=== PATIENT | female | born 1980 | race African-American/Black ===

== ENCOUNTER 2018-08-06 15:25 | Outpatient (CLI) | payer OTHER ==
--- NOTE | 2018-08-07 08:59 | MMO ---
MAMMOGRAM FINDINGS: There are scattered fibroglandular densities. There are no suspicious masses, calcifications or areas of architectural distortion. IMPRESSION: THERE IS NO MAMMOGRAPHIC EVIDENCE OF MALIGNANCY. A ROUTINE FOLLOW-UP MAMMOGRAM IN 1 YEAR IS RECOMMENDED. ACR BI-RADS Category 1 - Negative
== END 2018-08-06 15:26 | disposition home or self-care (01) ==
LOC: BICMAMMO 15:25
PROVIDERS: ATTEND Family Medicine
DX: Z12.31 Encounter for screening mammogram for malignant neoplasm of breast (principal)
CPT/HCPCS: 77063; 77067

== ENCOUNTER 2019-04-11 13:58 | Emergency (ER) | payer OTHER ==
[2019-04-11 15:22] LABS: #Eosinphils 0.1 thou/uL (0.0-0.7); #Lymphocytes 1.1 thou/uL (1.20-3.40); #Monocytes 0.4 thou/uL (0.11-0.59); #Neutrophils 2.5 thou/uL (1.40-6.50); %Basophils 0.5 % (0.0-1.0); %Eosinophils 1.5 % (0.0-10.0); %Lymphocytes 27.8 % (21.0-51.0); %Monocytes 9.3 % (0.0-10.0); %Neutrophils 60.9 % (42.0-75.0); Hemoglobin 8.8 g/dL (12.0-16.0); Mean Corpuscular HGB CONC 32.9 g/dL (32.0-36.0); Mean Corpuscular Hemoglobin 27.3 pg (27.0-31.0); Mean Corpuscular Volume 82.8 fL (78.0-98.0); Mean Platelet Volume 8.2 fL (7.4-10.4); Platelet Count 354 thou/uL (130-400); RBC Distribution Width 14.7 % (11.5-14.5); Red Blood Cell (RBC) Count 3.23 mill/uL (4.20-5.40)
[2019-04-11 15:24] LABS: BHCG - Serum Negative (NEGATIVE); Pregs Control Background? CLEAR/WHITE (CLR/WHITE); Pregs Control Bar Appear? YES (CONTROL BAR)
[2019-04-11] MEDS ORDERED: Ketorolac Tromethamine 30 MG/ML VIAL ONE (15:53)
[2019-04-13 14:37] LABS: Chlamydia by PCR Not Detected (NotDetected); GC by PCR Not Detected (NotDetected)
== END 2019-04-11 17:32 | disposition home or self-care (01) ==
LOC: ERS 13:58
DX: N93.8 Other specified abnormal uterine and vaginal bleeding (principal); D64.9 Anemia, unspecified
CPT/HCPCS: 36415; 84703; 85025; 87480; 87491; 87510; 87591; 87660; 99284; J1885

== ENCOUNTER 2019-08-12 15:02 | Outpatient (CLI) | payer OTHER ==
--- NOTE | 2019-08-12 15:57 | MMO ---
Bilateral MAMMO Bilat Screen [facility]. CLINICAL HISTORY: Patient is 39 years old and is seen for screening. The patient has no family history of breast cancer. The patient has no personal history of cancer. VIEWS: The views performed were: bilateral craniocaudal with tomosynthesis and bilateral mediolateral oblique with tomosynthesis. FILMS COMPARED: The present examination has been compared to a prior imaging study performed at [facility] on 08/06/2018. This study has been interpreted with the assistance of computer-aided detection. MAMMOGRAM FINDINGS: There are scattered fibroglandular densities. There are no suspicious masses, suspicious calcifications, or new areas of architectural distortion. IMPRESSION: THERE IS NO MAMMOGRAPHIC EVIDENCE OF MALIGNANCY. A ROUTINE FOLLOW-UP MAMMOGRAM IN 1 YEAR IS RECOMMENDED. THE RESULTS OF THIS EXAM WERE SENT TO THE PATIENT. ACR BI-RADS Category 1 - Negative MAMMOGRAPHY NOTE: 1. A negative mammogram report should not delay a biopsy if a dominant of clinically suspicious mass is present. 2. Approximately 10% to 15% of breast cancers are not detected by mammography. 3. Adenosis and dense breasts may obscure an underlying neoplasm. Reported by: OMA KLEIN MD Electonically Signed: [id number]
== END 2019-08-12 15:03 | disposition home or self-care (01) ==
LOC: BICMAMMO 15:02
PROVIDERS: ATTEND Specialist
DX: Z12.31 Encounter for screening mammogram for malignant neoplasm of breast (principal)
CPT/HCPCS: 77063; 77067

== ENCOUNTER 2020-02-19 06:03 | Outpatient (CLI) | payer OTHER ==
[2020-02-19 18:03] LABS: Hemoglobin 9.4 g/dL (12.0-16.0); Mean Corpuscular HGB CONC 30.6 g/dL (32.0-36.0); Mean Corpuscular Hemoglobin 23.8 pg (27.0-31.0); Mean Corpuscular Volume 77.8 fL (78.0-98.0); Mean Platelet Volume 9.3 fL (7.4-10.4); Platelet Count 331 thou/uL (130-400); RBC Distribution Width 16.1 % (11.5-14.5); Red Blood Cell (RBC) Count 3.95 mill/uL (4.20-5.40); White Blood Cell (WBC) Count 5.5 thou/uL (4.8-10.8)
[2020-02-20 14:48] LABS: SARS-CoV-2 MS2 Positive; SARS-CoV-2 N Gene Negative; SARS-CoV-2 S Gene Negative; SARS-CoV-2 by NAA Not Detected (NotDetected); SARS-CoV-2 orf1ab Negative
== END 2020-02-19 06:04 | disposition home or self-care (01) ==
LOC: LABBT 06:03
PROVIDERS: ATTEND Obstetrics & Gynecology
DX: Z01.812 Encounter for preprocedural laboratory examination (principal); D25.9 Leiomyoma of uterus, unspecified; N92.0 Excessive and frequent menstruation with regular cycle; D64.9 Anemia, unspecified; Z20.828 Contact with and (suspected) exposure to other viral communicable diseases
CPT/HCPCS: 85027; 86850; 86900; 86901; 87635; U0003

== ENCOUNTER 2020-02-23 05:43 | Inpatient (IN) | payer OTHER ==
[2020-02-22 10:08] VITALS: BMI 39.4
--- NOTE | 2020-02-22 18:53 | HP ---
REASON FOR ADMISSION: Menorrhagia, fibroids, and dysmenorrhea. SCHEDULED PROCEDURE: Total laparoscopic hysterectomy with bilateral salpingectomy. HISTORY OF PRESENT ILLNESS: Ms. Hernandez is a 39-year-old 5, para 4, AB1, x4, who has a long history of menorrhagia that has not been controlled by medical method. She is status post BTL. She reports using a super tampon and a pad q.1 hour on her heavy days. She has been anemic with hematocrit down to 28% as results of her menorrhagia. She desires definitive surgical management. HARDSCAPE FOREMAN HISTORY: As noted. Negative Pap in 2019. PAST MEDICAL HISTORY: Significant for anemia, obesity, hyperlipidemia. PAST SURGICAL HISTORY: Tubal ligation. ALLERGIES: NONE. MEDICATIONS: Iron. SOCIAL HISTORY: Denies tobacco, alcohol, or IV drug abuse. FAMILY HISTORY: Noncontributory. REVIEW OF SYSTEMS: Noncontributory. PHYSICAL EXAMINATION: GENERAL: White female, 5 foot 3, 228, BMI 40.5. Blood pressure 120/72, pulse 88, respirations 18. HEENT: Within normal limits. LUNGS: Clear to auscultation bilaterally. HEART: Regular rate and rhythm. BREASTS: No masses bilaterally. ABDOMEN: Soft, nontender. No rebound or guarding. Vulva without lesions. Vagina without discharge. Cervix, parous. Uterus, anteverted, 8- to 10-week size, boggy, slightly tender adnexa. No masses bilaterally. DIAGNOSTIC STUDIES: Ultrasound reveals uterus with multiple intracavitary fibroids up to 3 cm in greatest diameter with an overall diameter of 11.5 x 7.5 x 7.5 cm. No adnexal masses were noted. IMPRESSION: Menorrhagia, fibroids, dysmenorrhea and anemia, unresponsive to medical management. PLAN: Total laparoscopic hysterectomy, bilateral salpingectomy. The patient understands risks and benefits of procedure. We will administer appropriate antibiotic and DVT prophylaxis. Job ID: [id number]
[2020-02-23] MEDS ORDERED: Gabapentin 300 MG CAP ONE (06:09)
[2020-02-23] MEDS ORDERED: Famotidine/PF 20 mg/2ml Vial ONE (06:09)
[2020-02-23] MEDS ORDERED: CeleCOXIB 100 MG CAP ONE (06:09)
[2020-02-23] MEDS ORDERED: Lidocaine 1% w/Epinephrine 1:100K 20 ML VIAL ONE (06:56)
[2020-02-23] MEDS ORDERED: Bupivacaine PF 0.5% 30 ML VIAL ONE (06:56)
[2020-02-23] MEDS ORDERED: Fentanyl 250 MCG/5 ML VIAL ONE (06:58)
[2020-02-23] MEDS ORDERED: Midazolam HCl 2 mg/2 ml Vial ONE (07:25)
[2020-02-23] MEDS ORDERED: Promethazine HCl 25 MG/ML VIAL IM PRN ×2 (08:50→14:05)
[2020-02-23] MEDS ORDERED: Ondansetron HCl/PF 4 MG/2 ML Vial IVP PRN (08:50)
[2020-02-23] MEDS ORDERED: Promethazine HCl 25 MG/ML VIAL SLOW IVP PRN (08:50)
[2020-02-23] MEDS ORDERED: Fentanyl 100 MCG/2 ML VIAL ONE ×2 (10:40→11:12)
--- NOTE | 2020-02-23 10:56 | OP ---
DATE OF PROCEDURE: 02/23/2020 PREOPERATIVE DIAGNOSES: Dysmenorrhea, menorrhagia, anemia and uterine fibroids. POSTOPERATIVE DIAGNOSES: Dysmenorrhea, menorrhagia, anemia and uterine fibroids. PROCEDURES PERFORMED: Total laparoscopic hysterectomy, bilateral salpingectomy with extra corporal morcellation. RN MANAGER: LORY Hernandez. ANESTHESIA: General endotracheal, Julio Anguiano MD. ESTIMATED BLOOD LOSS: 100 mL. DRAINS: Nolan to gravity. COMPLICATIONS: None. OPERATIVE FINDINGS: 1. Approximately 10 week size uterus with multiple leiomyoma. 2. Status post tubal ligation. 3. Normal-appearing ovaries bilaterally. 4. Mild pelvic congestion syndrome bilaterally. 5. Hemostasis, clear urine. COUNTS: Correct at the end of the procedure. DISPOSITION: Recovery room in good condition. DESCRIPTION OF PROCEDURE: After obtaining proper informed consent, patient was taken to the operating room, where general endotracheal anesthesia achieved without difficulty. The patient was prepped and draped in dorsal lithotomy position in Be stirrups. Sliding speculum placed in vagina. Cervix noted to have a very large cervix, but was able to use a ARLET manipulator with a 4 cm vaginal shank threader and an 8 cm obturator to mobilize the uterus. A Nolan catheter was placed and was drained of 150 mL of clear urine and hooked up to a 60 mL syringe. Double End Sewer turned his attention to the abdominal portion of the procedure. A 5 mL of Marcaine injected to the superior aspect of the umbilicus and a vertical skin incision made of 12 mm. A Veress needle placed in the abdominal cavity. Insufflation was carried out with carbon dioxide for a max pressure of 15, volume approximately 3.5 L. A 12 mm Yury balloon trocar was introduced without difficulty and the patient was placed in steep Trendelenburg position. Findings as noted in the operative findings were noted. Right and left lateral da Claudia ports were placed lateral to the epigastric vessels. An medical support assistant 11 mm port in the right upper quadrant. Upon further inspection of the pelvis and size of the uterus and its dimensions, decision was made to go ahead and proceed with ExCITE procedure morcellation. The 12 mm trocar was removed at the umbilicus and the fascial incision extended to approximately 2.5 cm. Mini Efren O was placed inside [facility] on top after placing a uterine retrieval bag in the abdomen. Da Claudia robot was then docked with monopolar scissors in the right hand and bipolar fenestrated forceps in the left. The patient's obesity made her bowel somewhat difficult throughout the case, but it was mobilized into the upper abdomen for the case and care taken to avoid trauma throughout. The mesosalpinx on the patient's left was coagulated, transected, and the left fallopian tube removed. The utero-ovarian broad and round ligament were then coagulated and transected. This was carried down at the level of the internal cervical os. Visualization of lower uterine segment and cervix was made difficult due to anterior fibroids, but these were retracted posteriorly by the medical support assistant and the vesicouterine peritoneum incised sharply and the bladder dissected off the lower uterine segment, cervix and upper vagina. Skeletonization of the uterine vessels carried on the left and these were coagulated and transected. Attention was turned to the patient's right. Identical procedure was carried out. The bladder was back filled to ensure its identification of location, it was noted to be well below the level of surgical field. Ureters were difficult to appreciate secondary to the patient's obesity, they were felt to be well lateral to the surgical field as well. Once the uterine vessels were secured on both sides, the vagina was entered anteriorly at 12 o'clock 12-9 and 12-3 and then from 6-3 and 6-9 detaching the cervix. The uterus was then pulled off the ARLET manipulator and placed in the upper abdomen for retrieval. Suction irrigation was carried out and good hemostasis was noted along the vaginal cuff. It was closed using a running continuous 2-0 PDS Stratafix from right to left and then back to right in a 2 layer closure in my usual technique. Good hemostasis was noted. Suction irrigation was carried out. No further areas of bleeding were noted. Tisseel was placed across all surgical pedicles to ensure hemostasis. Once this was done, the retrieval bag was pulled in the pelvis. Stay sutures removed from it and the uterine specimen placed inside and the retrieval string pulled out through the GelPOINT cover over the mini Efren O. The da Claudia robot was undocked. The patient was flattened and the uterus was grasped extracorporeally through the mini Efren O and morcellated in the usual manner taking care to avoid trauma to the underlying viscera. Once the uterus was completely removed, the retrieval bag and the Efren O were removed. The fascia was identified, grasped with 2 O[facility] and closed using a running continuous #1 Maxon on a UR needle, taking care to avoid trauma to the underlying viscera. All 4 trocar sites were irrigated out and then reapproximated to the skin using 4-0 Monocryl and Dermabond. The vagina was swabbed and noted to be dry and intact and the patient was awakened, extubated and taken to recovery room in good condition. Job ID: [id number]
[2020-02-23] MEDS ORDERED: HYDROcodone/Acetaminophen 10/325 mg Tablet PO PRN (14:05)
[2020-02-23] MEDS ORDERED: Morphine 2 MG/ML VIAL SLOW IVP PRN (14:05)
[2020-02-23] MEDS ORDERED: diphenhydrAMINE 25 MG CAP PO PRN (14:05)
[2020-02-23] MEDS ORDERED: Zolpidem Tartrate 5 MG TAB PO PRN (14:05)
[2020-02-23] MEDS ORDERED: Ondansetron PF 4 MG/2 ML Vial IVP PRN (14:05)
[2020-02-23] MEDS ORDERED: Morphine 4 MG/ML VIAL SLOW IVP PRN (14:05)
[2020-02-23] MEDS ORDERED: Glycopyrrolate 0.2 MG/ML 5 ML SYRINGE ONE (14:31)
[2020-02-23] MEDS ORDERED: Dexamethasone 20 MG/5 ML VIAL ONE (14:31)
[2020-02-23] MEDS ORDERED: Lidocaine 1% PF 5 ML VIAL ONE (14:31)
[2020-02-23] MEDS ORDERED: Ondansetron PF 4 MG/2 ML Vial ONE (14:31)
[2020-02-23] MEDS ORDERED: Rocuronium Bromide 10 MG/ML (10ML VIAL) ONE (14:31)
[2020-02-23] MEDS ORDERED: PROPOFOL 200 MG/20 ML VIAL ONE (14:31)
[2020-02-23] MEDS ORDERED: Ibuprofen 800 MG TAB PO SCH (14:45)
[2020-02-23] MEDS: Gabapentin 300 MG CAP PO SCH ×2 (16:30→21:48)
[2020-02-23] MEDS: Simethicone Chewable 80 MG TAB PO PRN (18:35)
[2020-02-23] MEDS: HYDROcodone/Acetaminophen 10/325 mg Tablet PO PRN (18:35)
[2020-02-23] MEDS: Sodium Chloride 0.9% 1,000 ML IV SCH (18:37)
[2020-02-23] MEDS: Ibuprofen 800 MG TAB PO SCH (21:48)
[2020-02-24] MEDS: HYDROcodone/Acetaminophen 10/325 mg Tablet PO PRN (00:20)
[2020-02-24] MEDS: Sodium Chloride 0.9% 1,000 ML IV SCH ×3 (02:11→15:18)
[2020-02-24 06:04] LABS: Hemoglobin 8.2 g/dL (12.0-16.0); Mean Corpuscular HGB CONC 30.3 g/dL (32.0-36.0); Mean Corpuscular Hemoglobin 23.2 pg (27.0-31.0); Mean Corpuscular Volume 76.4 fL (78.0-98.0); Platelet Count 295 thou/uL (130-400); RBC Distribution Width 15.9 % (11.5-14.5); Red Blood Cell (RBC) Count 3.54 mill/uL (4.20-5.40); White Blood Cell (WBC) Count 7.3 thou/uL (4.8-10.8)
--- NOTE | 2020-02-24 08:49 | DIS ---
DATE OF ADMISSION: 02/23/2020 DATE OF DISCHARGE: 02/24/2020 PRIMARY PROCEDURE: Total laparoscopic hysterectomy with da Claudia, bilateral salpingectomy, extracorporeal bag morcellation. SUMMARY OF HOSPITAL COURSE: The patient underwent aforementioned procedure for large fibroid uterus on 02/22, 8 a.m., showed approximately 150 mL blood loss. Hematocrit went from 30% to 27% postoperatively. On postoperative day #1, urine output was 2400 mL and the patient had voided 500 mL post Nolan catheter removal. PHYSICAL EXAMINATION: VITAL SIGNS: Temperature is 97.8, T-max 97.9, pulse 75, respirations 18, and blood pressure 100/52. HEENT: Within normal limits. LUNGS: Clear to auscultation bilaterally. HEART: Regular rate and rhythm. ABDOMEN: Soft and nontender. Bowel sounds in all 4 quadrants. Incisions intact x4 and dry. Perineum is dry. EXTREMITIES: Without clubbing, cyanosis, or edema. Pathology pending. IMPRESSION: Doing well status post total laparoscopic hysterectomy for fibroids and menorrhagia. The patient's recovery somewhat slowed down by her BMI of 40 with some obesity hypoventilation, however pulse ox now is 98%. We will increase ambulation this morning and discharged home at noon today with schedule followup at [facility]. Job ID: [id number]
[2020-02-24] MEDS: Ibuprofen 800 MG TAB PO SCH ×3 (09:02→21:37)
[2020-02-24] MEDS: Gabapentin 300 MG CAP PO SCH ×3 (09:02→21:37)
[2020-02-24] MEDS: Simethicone Chewable 80 MG TAB PO PRN (15:21)
[2020-02-25] MEDS: Ibuprofen 800 MG TAB PO SCH ×2 (06:35→14:11)
[2020-02-25 06:53] LABS: Hemoglobin 8.4 g/dL (12.0-16.0); Mean Corpuscular HGB CONC 30.8 g/dL (32.0-36.0); Mean Corpuscular Hemoglobin 24.1 pg (27.0-31.0); Mean Corpuscular Volume 78.2 fL (78.0-98.0); Mean Platelet Volume 8.7 fL (7.4-10.4); Platelet Count 288 thou/uL (130-400); RBC Distribution Width 15.8 % (11.5-14.5)
[2020-02-25] MEDS: Sodium Chloride 0.9% 1,000 ML IV SCH ×2 (07:36→07:37)
[2020-02-25] MEDS: Simethicone Chewable 80 MG TAB PO PRN (09:26)
[2020-02-25] MEDS: Gabapentin 300 MG CAP PO SCH ×2 (09:26→14:11)
--- NOTE | 2020-02-25 10:20 | PRG ---
DATE OF SERVICE: 02/25/2020 TIME OF SERVICE: 0945 hours. SUBJECTIVE: Ms. Hernandez's discharge was held yesterday secondary to persistent nausea. She has had improvement in her nausea, has had good urine output and good p.o. intake. She has had no vomiting. OBJECTIVE: VITAL SIGNS: Temperature 98.6, pulse 78, respirations 17, blood pressure 126/62, T-max 98.6. HEENT: Within normal limits. LUNGS: Clear to auscultation bilaterally. HEART: Regular rate and rhythm. ABDOMEN: Soft, nontender. No rebound or guarding. Incision is intact and dry. Bowel sounds active. IMPRESSION: Doing well with delayed nausea, now resolved post total laparoscopic hysterectomy. PLAN: Discharge home, ER precautions. Keep scheduled followup. Job ID: [id number]
[2020-02-25 12:34] VITALS: BP 124/57; TEMP 99
== END 2020-02-25 14:24 | disposition home or self-care (01) | DRG 742 ==
LOC: SDC 05:43 → OBSVTOIN 13:45 → 3SE 13:45
PROVIDERS: ADMIT Obstetrics & Gynecology; ATTEND Obstetrics & Gynecology
PROC: 0UT94ZZ Resection of Uterus, Percutaneous Endoscopic Approach (ICD-10-PCS; principal; 2020-02-23)
PROC: 0UT74ZZ Resection of Bilateral Fallopian Tubes, Percutaneous Endoscopic Approach (ICD-10-PCS; 2020-02-23)
DX: D25.1 Intramural leiomyoma of uterus (principal); Z68.41 Body mass index [BMI] 40.0-44.9, adult; E66.2 Morbid (severe) obesity with alveolar hypoventilation; N92.0 Excessive and frequent menstruation with regular cycle; D64.9 Anemia, unspecified; N94.6 Dysmenorrhea, unspecified; N94.89 Other specified conditions associated with female genital organs and menstrual cycle; E78.5 Hyperlipidemia, unspecified; Z11.59 Encounter for screening for other viral diseases; Z98.51 Tubal ligation status
CPT/HCPCS: 36415; 51798; 85027; 88307; 96361; 96375; G0378; J0690; J1100; J2250; J2270; J2405; J2704; J3010; S0020; S0028

== ENCOUNTER 2020-05-18 14:29 | Inpatient (IN) | payer OTHER ==
[~2020-05-18 14:29] MED LIST: Iopamidol-370 76% 500 ML 1 ML ONE
--- NOTE | 2020-05-18 15:01 | RAD ---
Chest AP view INDICATION: Sepsis. History of Covid pneumonia COMPARISON: January 12, 2009 FINDINGS: Lungs: There is bilateral lower lobe airspace disease suspicious for pneumonia Cardiac silhouette: Heart is mildly prominent Pulmonary vasculature: Normal Pleural spaces: There is suspicion for small bilateral pleural effusions, left greater than right. Upper abdomen: No abnormality seen. Osseous structures: No acute osseous abnormality. Additional findings: None. IMPRESSION: Bilateral lower lobe airspace disease suspicious for pneumonia. Small bilateral pleural effusions, left greater than right. Mild cardiomegaly.
[2020-05-18] MEDS ORDERED: Acetaminophen 500 MG TAB ONE (15:03)
[2020-05-18 15:09] LABS: Mean Corpuscular HGB CONC 31.4 g/dL (32.0-36.0); Mean Corpuscular Hemoglobin 23.6 pg (27.0-31.0); Mean Corpuscular Volume 75.1 fL (78.0-98.0); Mean Platelet Volume 11.1 fL (7.4-10.4); Platelet Count 215 thou/uL (130-400); RBC Distribution Width 17.6 % (11.5-14.5); Red Blood Cell (RBC) Count 4.23 mill/uL (4.20-5.40); White Blood Cell (WBC) Count 7.1 thou/uL (4.8-10.8)
[2020-05-18 15:30] LABS: ALT (SGPT) 36 U/L (8-55); AST (SGOT) 34 U/L (5-34); Albumin 3.9 g/dL (3.5-5.0); Alkaline Phosphatase 61 U/L (40-110); Anion Gap 16 mmol/L (10-20); BUN (Urea Nitrogen) 10 mg/dL (7.0-18.7); Bilirubin, Total 0.5 mg/dL (0.2-1.2); Calc. Creatinine Clearance 0 mL/min (70-130); Calcium 8.1 mg/dL (7.8-10.44); Carbon Dioxide 24 mmol/L (22-29); Chloride 102 mmol/L (98-107); Globulin 3.4 g/dL (2.4-3.5); Glucose 110 mg/dL (70-105); Lipase 86 U/L (8-78); Potassium 3.9 mmol/L (3.5-5.1); Protein, Total 7.3 g/dL (6.0-8.3); Sodium 138 mmol/L (136-145)
[2020-05-18 15:33] LABS: Anisocytosis SLIGHT = 6-15 cells (100X) (0-5/hpf); Band 15 % (5-11); Hypochromia SLIGHT = 6-15 cells (100X) (0-5/hpf); Lymphocytes 20 % (21-51); MDiff Complete? YES; Microcytosis SLIGHT = 6-15 cells (100X) (0-5/hpf); Monocytes 2 % (0-10); Neutrophil 62 % (42-75); Ovalocytes SLIGHT = 2-5 cells (100X) (0-1/hpf); Platelet Morphology Comment Appears Adequate; Polychromasia SLIGHT = 2-3 cells (100X) (0-2/hpf); Reactive Lymphocytes 1 % (0-10)
[2020-05-18] MEDS ORDERED: Ibuprofen 200 MG TAB ONE (15:37)
--- NOTE | 2020-05-18 17:04 | CT ---
EXAM: CTA of the chest HISTORY: Shortness of breath; Covid positive COMPARISON: None TECHNIQUE: Multiple contiguous axial images were obtained a CTA of the chest with contrast per pulmon coleman embolism protocol. 3-D oblique MIP reformats and direct coronal reformats were performed. FINDINGS: HEART: Normal in size without focal cardiac abnormality. PULMONARY ARTERIES: Evaluation is limited secondary to poor timing of the contrast bolus. Normal in c aliber without filling defects in the central pulmonary arteries to suggest pulmonary emboli. MEDIASTINUM: No hilar or mediastinal lymphadenopathy. LUNGS: Scattered multifocal areas of groundglass attenuation and consolidation in the lungs are consi stent with Covid pneumonia. PLEURAL SPACE: No pleural effusion or pneumothorax. CHEST WALL SOFT TISSUES: Unremarkable VISUALIZED OSSEOUS STRUCTURES: No acute abnormality. VISUALIZED SUBDIAPHRAGMATIC STRUCTURES: Unremarkable IMPRESSION: 1. No evidence of pulmonary thromboembolism 2. Covid pneumonia
[2020-05-18] MEDS ORDERED: Acetaminophen 325 MG TAB PO PRN (23:15)
[2020-05-19 00:44] VITALS: BMI 40.3
--- NOTE | 2020-05-19 07:37 | HP ---
CHIEF COMPLAINT: COVID pneumonia. HISTORY OF PRESENT ILLNESS: The patient is a 40-year-old female who states that 6 days prior to coming to the emergency room, she began to have weakness, fever, chills, and cough. Over the next several days, this has persisted and when she became more short-winded, she came to the emergency room for further evaluation. There, she was noted to require 3 L O2 saturation at 94%, coughing, and temperature 102.4. Dr. Reilly was contacted for admission. PAST MEDICAL HISTORY: Significant for dyslipidemia and medical noncompliance. PAST SURGICAL HISTORY: Positive for tubal and for hysterectomy. She has had her flu vaccine. PSYCHIATRIC HISTORY: Negative. SOCIAL HISTORY: Lives at home with her family. Drinks socially. Denies smoking. Denies drug use. ALLERGIES: NO KNOWN DRUG ALLERGIES. CURRENT MEDICATIONS: The patient has been placed on cholesterol medicine, but she is not taking it. REVIEW OF SYSTEMS: CONSTITUTIONAL: Admits to fever, chills, fatigue, and weakness. HEENT: Denies drainage from eyes, ears, nose, or throat. CHEST: Has a cough and shortness of breath. CARDIOVASCULAR: Denies palpitations or chest pain. GI: Denies nausea, vomiting, or diarrhea. : Denies blood in urine or stool or dysuria. MUSCULOSKELETAL: Denies any generalized aches, pains, or swelling. SKIN: No new rashes or lesions. NEUROLOGIC: Mental status is clear. Denies headaches, blurred vision, or trouble with mentation. HEMOLYTIC LYMPH: Denies any abnormal clotting, bruising, or swelling. PHYSICAL EXAMINATION: VITAL SIGNS: On admission, blood pressure 100/67, pulse 125, respirations 20, temperature 102.8, and O2 saturation is initially 98% on room air, but then decompensates to needing 3 L of oxygen to keep her at 94% while in the emergency room. HEENT: Normocephalic and atraumatic. Pupils are equal, round, and reactive to light. Extraocular muscles are intact. TMs, nares, and pharynx are clear. NECK: Supple. Trachea midline. CHEST: Generally diminished breath sounds bilaterally. BREASTS: Deferred. HEART: Regular rate and rhythm. ABDOMEN: Obese. Unable to appreciate any organomegaly or tenderness. : Deferred. EXTREMITIES: Without clubbing, cyanosis, or edema. Normal range of motion present. SKIN: No new rashes or lesions. NEUROLOGIC: Cranial nerves are intact. Mental status is clear. Sensory exam is grossly intact. Unable to test gait and cerebellar function at this time. LABORATORY DATA: Lab work thus far shows an EKG with sinus tach at 125 with a HI of 120 and QRS of 0.76 and QT of 441, ST segments are normal. Chest CTA shows COVID pneumonia, but no evidence of pulmonary embolism. Sodium 138, potassium 3.9, chloride 102, CO2 of 24, BUN 10, creatinine 1.04, glucose 110, and calcium 8.1. Liver functions normal. Troponins normal. Lipase slightly elevated at 86. The D-dimer is elevated at 1.06. WBC 7.1, hemoglobin 10.0, and hematocrit 31.8. ASSESSMENT: 1. COVID pneumonia-with hypoxia, requiring oxygen. 2. Dyslipidemia-noncompliant with medication. 3. Morbid obesity. PLAN: Supportive care, IV Decadron, Zinc, Lovenox to prevent pulmonary embolism and serial re-evaluation. Job ID: [id number]
[2020-05-19] MEDS ORDERED: Ondansetron PF 4 MG/2 ML Vial IVP PRN (08:21)
[2020-05-19] MEDS: Dexamethasone 4 mg/ml Vial SLOW IVP SCH (09:33)
[2020-05-19] MEDS: Zinc Sulfate 220 MG CAP PO SCH (09:33)
[2020-05-19] MEDS: Sodium Chloride 0.9% 1,000 ML IV SCH ×2 (09:33→18:32)
[2020-05-19] MEDS: Enoxaparin Sodium 40 MG/0.4 ML SYRINGE SC SCH (09:33)
[2020-05-19] MEDS: Ergocalciferol 1.25 MG(50,000 UNITS) CAP PO SCH (09:41)
[2020-05-19] MEDS: Benzonatate 100 MG CAP PO PRN ×2 (11:13→21:04)
[2020-05-19] MEDS: Acetaminophen 325 MG TAB PO PRN (12:27)
[2020-05-19] MEDS ORDERED: Albuterol Sulfate 2.5 mg/3 ml Neb NEB PRN (21:27)
[2020-05-19] MEDS ORDERED: Albuterol 200 PUFF (6.7GM INHALER) INH PRN (21:56)
[2020-05-20] MEDS: Benzonatate 100 MG CAP PO PRN ×3 (03:04→22:44)
[2020-05-20] MEDS: Sodium Chloride 0.9% 1,000 ML IV SCH ×3 (04:03→20:30)
[2020-05-20] MEDS: Acetaminophen 325 MG TAB PO PRN ×2 (04:05→22:41)
[2020-05-20 05:36] LABS: Anion Gap 12 mmol/L (10-20); BUN (Urea Nitrogen) 7 mg/dL (7.0-18.7); Calc. Creatinine Clearance 168 mL/min (70-130); Calcium 7.9 mg/dL (7.8-10.44); Carbon Dioxide 25 mmol/L (22-29); Chloride 107 mmol/L (98-107); Glucose 87 mg/dL (70-105); Sodium 140 mmol/L (136-145)
[2020-05-20 05:40] LABS: #Lymphocytes 0.9 thou/uL (1.20-3.40); #Monocytes 0.4 thou/uL (0.11-0.59); %Basophils 0.2 % (0.0-1.0); %Eosinophils 0.1 % (0.0-10.0); %Lymphocytes 10.4 % (21.0-51.0); %Monocytes 4.4 % (0.0-10.0); %Neutrophils 84.8 % (42.0-75.0); Hemoglobin 9.9 g/dL (12.0-16.0); Mean Corpuscular Hemoglobin 23.3 pg (27.0-31.0); Mean Corpuscular Volume 74.9 fL (78.0-98.0); Mean Platelet Volume 10.4 fL (7.4-10.4); Platelet Count 254 thou/uL (130-400); RBC Distribution Width 17.5 % (11.5-14.5); Red Blood Cell (RBC) Count 4.27 mill/uL (4.20-5.40); White Blood Cell (WBC) Count 8.2 thou/uL (4.8-10.8)
--- NOTE | 2020-05-20 08:15 | RAD ---
Exam: Chest one view HISTORY:Sepsis. COVID pneumonia. Comparison: 05/18/2020 FINDINGS: Cardiac silhouette:Enlarged cardiac silhouette due to portable technique Aorta: Unremarkable Pulmonary vessels: Normal Costophrenic angles: Clear LUNGS: Multifocal interstitial and alveolar opacities do remain. Pneumothorax: None Osseous abnormalities: None IMPRESSION: Stable multi lobar COVID pneumonia.
[2020-05-20] MEDS: Ergocalciferol 1.25 MG(50,000 UNITS) CAP PO SCH (09:53)
[2020-05-20] MEDS: Enoxaparin Sodium 40 MG/0.4 ML SYRINGE SC SCH (09:54)
[2020-05-20] MEDS: Zinc Sulfate 220 MG CAP PO SCH (09:54)
[2020-05-20] MEDS: Dexamethasone 4 mg/ml Vial SLOW IVP SCH (09:54)
[2020-05-21 05:24] LABS: #Lymphocytes 0.9 thou/uL (1.20-3.40); #Monocytes 0.5 thou/uL (0.11-0.59); #Neutrophils 5.7 thou/uL (1.40-6.50); %Basophils 0.2 % (0.0-1.0); %Eosinophils 0.4 % (0.0-10.0); %Monocytes 7.5 % (0.0-10.0); Hemoglobin 9.4 g/dL (12.0-16.0); Mean Corpuscular HGB CONC 30.2 g/dL (32.0-36.0); Mean Corpuscular Hemoglobin 22.7 pg (27.0-31.0); Mean Corpuscular Volume 75.2 fL (78.0-98.0); Mean Platelet Volume 10.4 fL (7.4-10.4); Platelet Count 331 thou/uL (130-400); RBC Distribution Width 17.5 % (11.5-14.5); Red Blood Cell (RBC) Count 4.14 mill/uL (4.20-5.40); White Blood Cell (WBC) Count 7.2 thou/uL (4.8-10.8)
[2020-05-21] MEDS: Benzonatate 100 MG CAP PO PRN (07:57)
[2020-05-21] MEDS: Ergocalciferol 1.25 MG(50,000 UNITS) CAP PO SCH (07:57)
[2020-05-21] MEDS: Dexamethasone 4 mg/ml Vial SLOW IVP SCH (07:58)
[2020-05-21] MEDS: Zinc Sulfate 220 MG CAP PO SCH (07:58)
[2020-05-21] MEDS: Enoxaparin Sodium 40 MG/0.4 ML SYRINGE SC SCH (07:58)
[2020-05-21] MEDS: Sodium Chloride 0.9% 1,000 ML IV SCH (11:48)
--- NOTE | 2020-05-21 15:21 | EKG ---
Test Reason : Blood Pressure : / mmHG Vent. Rate : 125 BPM Atrial Rate : 125 BPM P-R Int : 120 ms QRS Dur : 076 ms QT Int : 306 ms P-R-T Axes : 065 060 006 degrees QTc Int : 441 ms Sinus tachycardia Possible Left atrial enlargement Nonspecific T wave abnormality Abnormal ECG Confirmed by MINERVA BAEZ DO ([id number]), pictures editor RADHA MANZO ([id number]) on 05/21/2020 3:21:46 PM Referred By: Confirmed By:MINERVA BAEZ DO
[2020-05-21 16:05] VITALS: BP 131/69; TEMP 98.6
== END 2020-05-21 17:35 | disposition home or self-care (01) | DRG 177 ==
LOC: ERS 14:29 → ERHOLD 18:58 → 2SW 22:22
PROVIDERS: ADMIT Specialist; ATTEND Specialist
PROC: 8E0ZXY6 Isolation (ICD-10-PCS; principal; 2020-05-18)
DX: U07.1 COVID-19 (principal); J12.89 Other viral pneumonia; Z68.41 Body mass index [BMI] 40.0-44.9, adult; E78.5 Hyperlipidemia, unspecified; R09.02 Hypoxemia; E66.01 Morbid (severe) obesity due to excess calories; Z98.51 Tubal ligation status; Z90.710 Acquired absence of both cervix and uterus; Z91.14 Patient's other noncompliance with medication regimen
CPT/HCPCS: 36415; 71045; 71275; 80048; 80053; 83690; 84145; 84484; 85025; 85379; 93005; 94760; J1100; J1650; Q9967

== ENCOUNTER 2020-08-23 14:41 | Outpatient (CLI) | payer OTHER | END 2020-08-23 14:42 | disposition home or self-care (01) | LOC: BICMAMMO 14:41 | PROVIDERS: ATTEND Specialist | DX: Z12.31 Encounter for screening mammogram for malignant neoplasm of breast (principal) | CPT/HCPCS: 77063; 77067 ==